=== PATIENT | male | born 1985 | race African-American/Black ===

== ENCOUNTER 2016-08-15 06:14 | Day surgery (SDC) | payer OTHER ==
[~2016-08-15 06:14] MED LIST: Buffered Lidocaine 1% SYRIN* 3 ML/SYR SYRINGE INTRADERM ONE; ceFAZolin 2 GM PREMIX(*) 2 GM/50 ML BAG IVPB ONE
[2016-08-15] MEDS ORDERED: EPINEPHrine AMP 1 MG/ML ONE (07:21)
[2016-08-15] MEDS ORDERED: methylPREDNISolone ACETATE 80* 80 MG/ML 1 ML VIAL ONE (07:21)
[2016-08-15] MEDS ORDERED: Bupivacaine 0.5% SDV PF* 30 ML VIAL ONE (07:21)
[2016-08-15] MEDS ORDERED: Propofol* 10 MG/ML 20 ML BTL IV PUSH ONE (07:40)
[2016-08-15] MEDS ORDERED: fentaNYL* 50 MCG/ML 2 ML VIAL (100 MCG VIAL) ONE (07:40)
[2016-08-15] MEDS ORDERED: Midazolam* 1 MG/ML 5 ML VIAL (5 MG) ONE (07:40)
[2016-08-15] MEDS ORDERED: Dexamethasone IV* 4 MG/ML 1 ML (4 MG) ONE (08:02)
[2016-08-15] MEDS ORDERED: Ketorolac INJ* 30 MG/ML 1 ML VIAL ONE (08:09)
[2016-08-15] MEDS ORDERED: Ondansetron INJ* 2 MG/ML VIAL ONE (08:19)
[2016-08-15] MEDS ORDERED: HYDROmorphone* 1 MG/ML 1 ML SYR IV PRN (08:20)
[2016-08-15] MEDS ORDERED: DiMENhydriNATE IV* 50 MG/ML VIAL IV PUSH PRN (08:20)
[2016-08-15] MEDS ORDERED: fentaNYL* 50 MCG/ML 2 ML VIAL (100 MCG VIAL) IV PRN (08:20)
[2016-08-15] MEDS ORDERED: oxyCODONE/Acetamin 5/325 MG* TAB PO PRN (08:20)
[2016-08-15] MEDS ORDERED: Ondansetron INJ* 2 MG/ML VIAL IV PRN (08:20)
[2016-08-15 09:36] VITALS: BP 134/83
--- NOTE | 2016-08-16 00:14 | OP ---
DATE OF OPERATION: 08/15/16 [facility] DATE OF : 87 SURGEON: Carmelita Frias MD DOG OBEDIENCE INSTRUCTOR: CHARLEY Rosas. Ms. Ford was used throughout the procedure for preparation of the leg, manipulation of the leg, retraction, and wound closure. ANESTHESIOLOGIST: Alex Jovel MD ANESTHESIA: General. PRE-OP DIAGNOSIS: Right knee pain with lateral meniscal tear. POST-OP DIAGNOSIS: Right knee lateral meniscal tear, parrot-beak type, anterior synovitis. OPERATIVE PROCEDURES: Right knee arthroscopy with anterior synovectomy and partial lateral meniscectomy. COMPLICATIONS: None. ESTIMATED BLOOD LOSS: Less than 25 cc. HARDWARE: None. SPECIMEN: None. BRIEF HISTORY/INDICATION: Mr. Valenzuela is a 31-year-old inmate at [facility] who was playing basketball 5 months ago when he felt a pop and his right knee gave out. Since that time, conservative treatment has failed to relieve his pain. History, physical exam, and MRI were all indicative of a displaced lateral meniscal tear. The patient also has some mild arthritic changes on imaging. Due to failure of conservative treatment, the patient wished to proceed with right knee arthroscopy and partial lateral meniscectomy with possible chondroplasty and possible synovectomy. Authorization was obtained from the critical access hospital. Informed consent was obtained from the patient. He understood the risks of surgery included, but were not limited to bleeding, infection, damage to nearby structures, continued pain, need for further surgery, stroke, heart attack, blood clot, and . He wished to proceed. INTRAOPERATIVE FINDINGS: Intraoperatively, the patient was noted to have very mild degenerative changes of the patellofemoral compartment. He had a large parrot-beak type tear with displaced fragment involving the mid portion of the lateral meniscus. He also had significant amount of anterior synovitis. DESCRIPTION OF PROCEDURE: Mr. Valenzuela was identified in the preanesthesia unit. His right lower extremity was marked as the correct operative side. Informed consent was signed and placed in the chart. The patient was taken to the operating room and placed under general anesthesia without difficulty. The right lower extremity was prepped and draped in the usual sterile fashion. Preop time-out was made to correctly identify the patient's side and site. Appropriate perioperative antibiotics were given within 1 hour of incision. A 1.5 cm anterolateral portal incision was made with a 15 blade and carried down to the capsule. Trocar was introduced. As soon as the light and water sources were turned on, there was immediate visualization of the knee joint. Suprapatellar pouch showed no obvious abnormality. The patellofemoral compartment showed some very minimal degenerative changes without any large areas of expose subchondral bone or cartilage flapping. The medial gutter showed no loose body or plica. The anterior joint line showed significant synovitis, which did make visualization difficult. Medial compartment showed no obvious meniscal tear. There were no significant degenerative changes of the cartilage. ACL and PCL appeared to be intact. The knee was placed in a [id number] position. Lateral meniscal tear with displacement of a parrot- beak type fragment along the middle portion of the lateral meniscus was immediately visualized. No significant degenerative changes of the cartilage were noted. Lateral gutters showed no abnormality. Under direct visualization, a medial portal incision was made with a 15 blade. A probe was introduced and a second tour of the knee joint was performed. A second tour of the knee joint was performed. No additional findings were noted. Shaver and radiofrequency ablation wand were used to perform anterior synovectomy. Inflammatory tissue was removed. Visualization of the knee joint was greatly improved. The knee was placed in a [id number]-[id number] position. A straight biter was used to perform partial medial meniscectomy mainly in the white-red zone of the lateral meniscus. Displaced parrot-beak type tear involved mainly the white-red zone and the majority of the lateral meniscus body. A smooth border was obtained. A shaver and radiofrequency ablation wand were used to further smooth the edge of the meniscus. A probe was used to ensure there was no further flapping or displaced fragments. The knee was copiously irrigated with sterile saline. All instruments were carefully removed. The incisions were closed using interrupted 3-0 nylon suture. Intraarticular injection of 80 mg of Depo-Medrol and 6 cc of 0.25% Marcaine was placed in the knee joint. The patient's incisions were closed using Xeroform, 4x4s, and Webril. Baltazar wrap and cold pack were placed over this. The patient's anesthesia was reversed without difficulty. He was taken to the PACU in stable condition. Intended weightbearing will be weightbearing as tolerated. Intended DVT prophylaxis will be aspirin for the next 2 weeks. The patient will follow up in 2 weeks' time for suture removal. [id number] #: [id number] MTDD
== END 2016-08-15 09:50 ==
LOC: OR 06:14
PROVIDERS: ATTEND Orthopaedic Surgery Adult Reconstructive Orthopaedic Surgery
DX: S83.261A Peripheral tear of lateral meniscus, current injury, right knee, initial encounter (principal); I10 Essential (primary) hypertension; X50.0XXA Overexertion from strenuous movement or load, initial encounter; Y93.67 Activity, basketball; Y92.310 Basketball court as the place of occurrence of the external cause
CPT/HCPCS: J0171; J0690; J1040; J1100; J1885; J2250; J2405; J2704; J3010